=== PATIENT | male | born 1960 | race Caucasian/White ===

== ENCOUNTER 2022-07-05 15:38 | Emergency (ER) | payer OTHER ==
[2022-07-05 17:05] VITALS: BP 116/65; PULSE 65; O2SAT 95
[2022-07-05] MEDS ORDERED: XYLOCAINE 1% HCL 20 ML MDV ONE (17:41)
[2022-07-05] MEDS ORDERED: XYLOCAINE 1% HCL 20 ML MDV IJ ONE (17:43)
[2022-07-05] MEDS ORDERED: BACIGUENT PACKET TP ONE (18:01)
[2022-07-05] MEDS ORDERED: Adacel Vial IM ONE ×2 (18:02→18:06)
[2022-07-05] MEDS ORDERED: BACIGUENT PACKET ONE (18:06)
--- NOTE | 2022-07-05 18:07 | ERPHSYRPT ---
- History of Present Illness Time Seen by Provider: 07/05/22 17:01 Source: patient Exam Limitations: no limitations Patient Subjective Stated Complaint: Pt reports he was using some tools when an josephine wrench ripped across his hand causing a laceration across left hand by the thumb. Reports some numbness and tingling in second and third digit. Triage Nursing Assessment: Pt alert and oriented x3. No apparent respiratory distress. Ambulated to ED cot without difficulty. Skin w/p/d. Left hand laceration, exposing muscle. Approx 3.5cm by 1.5cm. Physician History: 61-year-old type II diabetic right-handed dominant presented with laceration left hand first webspace between thumb and index while dealing with a ranch and drill prior to arrival. Bleeding initially which stopped with applying pressure. No numbness or tingling in the fingers/thumb. Mild to moderate burning pain. Quality: painful Severity: moderate Location: hands Possible Causes: other Allergies/Adverse Reactions: No Known Drug Allergies Allergy (Unverified 07/05/22 16:57) Hx Tetanus, Diphtheria Vaccination/Date Given: No Hx Influenza Vaccination/Date Given: Yes Hx Pneumococcal Vaccination/Date Given: No Travel Risk - International Travel Have you traveled outside of the country in past 3 weeks: No - Coronavirus Screening Are you exhibiting any of the following symptoms?: No Close contact with a COVID-19 positive Pt in past 14-21 Days: No - Vaccine Status Have you recieved a Covid-19 vaccination: Yes [employer]: [employer] - Vaccination Dates Date of 2cond Vaccination (if applicable): ? - Review of Systems Constitutional: No Symptoms Ears, Nose, & Throat: No Symptoms Respiratory: No Symptoms Cardiac: No Symptoms Musculoskeletal: Injury Psychological: No Symptoms Endocrine: No Symptoms - Past Medical History Pertinent Past Medical History: Yes Endocrine Medical History: Diabetes Type II Musculoskeletal History: Other Other Medical History: gout - Past Surgical History Past Surgical History: Yes Musculoskeletal: Orthopedic Surgery Male Surgical History: Vasectomy Other Surgical History: right hip replacement, back surgery, right hand - Social History Smoking Status: Never smoker Exposure to second hand smoke: No Drug Use: none Patient Lives Alone: No - Nursing Vital Signs Nursing Vital Signs: Initial Vital Signs Pulse Rate 65 07/05/22 16:57 Respiratory Rate 15 07/05/22 16:57 Blood Pressure 116/65 07/05/22 16:57 O2 Sat by Pulse Oximetry 95 07/05/22 16:57 Pain Scale Pain Intensity 7 - Physical Exam General Appearance: no apparent distress, alert Eye Exam: PERRL/EOMI Ears, Nose, Throat Exam: normal ENT inspection Neck Exam: normal inspection, full range of motion Respiratory Exam: normal breath sounds, lungs clear Cardiovascular Exam: regular rate/rhythm, normal heart sounds Extremity Exam: normal range of motion, lacerations (3 cm laceration left hand first webspace with exposed muscle but no laceration. Intact range of motion of thumb/index. Cap refill less than 3 seconds.), swelling Neurologic Exam: alert, oriented x 3, cooperative Skin Exam: normal color SpO2 Interpretation: normal SpO2: 95 O2 Delivery: Room Air Procedures - Laceration/Wound Repair Left Hand Time of Procedure: 17:34 Wound Location: Left, hand Wound Length (cm): 3 Wound's Depth, Shape: superficial Wound Explored: clean Irrigated: Yes Hibiclens Prep: Yes Anesthesia: 1% Lidocaine Volume Anesthetic (ccs): 6 Wound Debrided: minimal Wound Repaired With: sutures Suture Size/Type: 4-0 Number of Sutures: 6 Layer Closure?: No Sterile Dressing Applied?: Yes Splint Applied?: Yes Type of Splint Applied: Premade aluminum Ordered Tests: Active Orders 24 hr Category Date Time Status Wound Care STAT Care 07/05/22 18:01 Active Medication Summary Discontinued Medications Generic Name Dose Route Start Last Admin Trade Name Freq PRN Reason Stop Dose Admin Bacitracin Zinc 0.9 each 07/05/22 18:01 Bacitracin Packet 1 Each Pckt TP 07/05/22 18:02 STAT ONE Lidocaine HCl 10 ml 07/05/22 17:43 07/05/22 17:50 Lidocaine Hcl 1% 20 Ml Mdv 20 Ml Ml IJ 07/05/22 17:44 10 ml STAT ONE Administration Lidocaine HCl Confirm 07/05/22 17:41 Lidocaine Hcl 1% 20 Ml Mdv 20 Ml Ml Administered 07/05/22 17:42 Dose 10 ml .ROUTE .STK-MED ONE - Progress Progress: improved Progress Note: 07/05/22 18:05 61-year-old [id number] male is evaluated for laceration left hand first webspace. Normal distal neurovascular. Intact range of motion at the thumb and index. Tetanus is updated. Laceration is repaired. It is superficial, do not think needs imaging or work-up. Counseled pt/family regarding: diagnosis, need for follow-up Medical Desision Making - Diagnostic Testing Diagnostic test were ordered, analyzed, and reviewed by me: No - Risk of complications The pt has a mod risk of morbidity or mortality based on: Need for prescription drug management, Need for minor surgical intervention in patient with know risk factors - Departure Departure Disposition: Home Clinical Impression: Hand laceration Condition: Stable Critical Care Time: No Instructions: Wound Care (DC), Laceration Repair With Stitches (DC) Additional Instructions: Take Tylenol/ibuprofen as needed for pain. Follow-up with your primary care for reevaluation in 2 to 3 days. Return to ER for worsening pain swelling, difficulty movements of the thumb/fingers/discharge/fever chills etc. Avoid exertional activities with left hand. Prescriptions: Ibuprofen 600 mg PO Q6HPRN PRN 10 Days #20 tablet PRN Reason: Pain
== END 2022-07-05 18:45 | disposition home or self-care (01) ==
LOC: ED 15:38
DX: S61.412A Laceration without foreign body of left hand, initial encounter (principal); W27.8XXA Contact with other nonpowered hand tool, initial encounter; E11.9 Type 2 diabetes mellitus without complications
CPT/HCPCS: 12002; 90471; 90715; 96372; 99283; A4570; A9270-GY